=== PATIENT | male | born 2000 | race Caucasian/White ===

== ENCOUNTER 2024-12-06 11:22 | Emergency (ER) | payer OTHER ==
[~2024-12-06] VITALS: Ht 180.3 cm; Wt 100.0 kg
[2024-12-06 11:33] VITALS: TEMP 37.2; O2SAT 99
[2024-12-06] MEDS: IBUPROFEN 600MG TABLET PO ONE (12:00)
[2024-12-06] MEDS: TETANUS, DIPHTHERIA, PERTUSSIS VAC/PF 0.5ML (>10YR OLD) IM ONE (12:00)
[2024-12-06] MEDS: LIDOCAINE HCL 1% 20ML VIAL INL ONE (12:00)
[2024-12-06] MEDS ORDERED: BO1 TP (13:49)
[2024-12-06] MEDS ORDERED: IBUP-2028 MT (13:49)
[2024-12-06 14:38] VITALS: BP 126/74; PULSE 78; RESP 18; O2SAT 100
== END 2024-12-06 14:39 | disposition home or self-care (01) ==
LOC: ER 11:22
DX: S01.111A Laceration without foreign body of right eyelid and periocular area, initial encounter (principal); W22.09XA Striking against other stationary object, initial encounter; Y93.89 Activity, other specified; Y92.89 Other specified places as the place of occurrence of the external cause; Y99.8 Other external cause status
CPT/HCPCS: 73502; 70450; 90715; 12011; 90471; 99285; J2003; Z7610 ×2

== ENCOUNTER 2024-12-13 08:47 | Emergency (ER) | payer OTHER ==
[~2024-12-13] VITALS: Ht 182.9 cm; Wt 109.0 kg
[~2024-12-13 08:47] MED LIST: BO1 TP; IBUP-2028 MT
[2024-12-13 08:48] VITALS: O2SAT 99
[2024-12-13 08:50] VITALS: BP 109/77; PULSE 84; RESP 16; TEMP 36.7; O2SAT 100
== END 2024-12-13 09:03 | disposition home or self-care (01) ==
LOC: ER 08:52
DX: S01.111D Laceration without foreign body of right eyelid and periocular area, subsequent encounter (principal); X58.XXXD Exposure to other specified factors, subsequent encounter
CPT/HCPCS: 99282